=== PATIENT | female | born 1990 | race African-American/Black ===

== ENCOUNTER 2020-08-12 05:36 | Emergency (ER) | payer SELFPAY ==
[~2020-08-12] VITALS: Ht 162.6 cm; Wt 59.0 kg
[2020-08-12 05:50] VITALS: BP 117/76
--- NOTE | 2020-08-12 05:58 | NUR ---
TO CHAIR B AMBULATORY
[2020-08-12] MEDS ORDERED: PROMETH/CODEINE 6.25-10MG/5ML 5 ML UDC PO STA (06:08)
[2020-08-12] MEDS ORDERED: DEXAMETHASONE 10 MG/ML VIAL PO STA (06:08)
--- NOTE | 2020-08-12 06:08 | NUR ---
SEEN AND EXAMINED BY PIPER WITH ORDERS AND CARRIED OUT.
--- NOTE | 2020-08-12 06:10 | NUR ---
MEDICATED PER [facility] ORDER, TOLERATED WELL
[2020-08-12 06:30] VITALS: BP 117/76
--- NOTE | 2020-08-12 06:30 | NUR ---
Patient discharged with v/s stable. Written and verbal after care instructions given and explained. Patient alert, oriented and verbalized understanding of instructions. Ambulatory with steady gait. All questions addressed prior to discharge. ID band removed. Patient advised to follow up with PMD. Rx of CODEINE PHOSPHATE, MOTRIN 40MG given. Patient educated on indication of medication including possible reaction and side effects. Opportunity to ask questions provided and answered.
== END 2020-08-12 06:30 | disposition home or self-care (01) ==
LOC: MED 05:36
DX: J02.9 Acute pharyngitis, unspecified (principal); Z20.828 Contact with and (suspected) exposure to other viral communicable diseases
CPT/HCPCS: 99283; J1100